=== PATIENT | female | born 1990 | race Caucasian/White ===

== ENCOUNTER 2017-02-25 07:10 | Outpatient (CLI) ==
[2016-04-22 12:21] VITALS: BMI 22.1
[2017-02-25 07:35] LABS: ALBUMIN 3.4 g/dL (3.4-5.0); ALBUMIN/GLOBULIN RATIO 1.06; ANION GAP 11.2; CALCIUM 8.8 mg/dL (8.2-10.2); POTASSIUM 4.2 mmol/L (3.5-5.10); TOTAL PROTEIN 6.6 g/dL (6.4-8.2)
[2017-02-25 07:36] LABS: BILIRUBIN,TOTAL 0.23 mg/dL (0.00-1.20); BUN/CREATININE RATIO 15.49; CREATININE 0.71 mg/dL (0.60-1.30)
== END 2017-02-25 07:11 | disposition home or self-care (01) ==
LOC: LAB 07:10
PROVIDERS: ATTEND Physician Assistant Medical
DX: L70.8 Other acne (principal)
CPT/HCPCS: 36415; 80053